=== PATIENT | male | born 1980 ===

== ENCOUNTER 2016-08-17 04:45 | Emergency (ER) | payer MEDICAID ==
[2016-08-17 04:55] VITALS: TEMP 98.5
[2016-08-17 05:28] LABS: BASO # 0.1 K/uL (0.0-0.2); BASO % 0.7 % (0.0-2.0); EOS # 0.2 K/uL (0.0-0.7); EOS % 1.7 % (0.0-4.0); HEMATOCRIT 38.2 % (35.0-51.0); LYMPH # 3.4 K/uL (1.0-4.3); LYMPH % 28.2 % (20.0-40.0); MEAN CELL VOLUME 84.2 fl (80.0-94.0); MEAN CORPUSCULAR HEMOGLOBIN 26.5 pg (27.0-31.0); MEAN CORPUSCULAR HGB CONC 31.4 g/dL (33.0-37.0); MEAN PLATELET VOLUME 9.3 fl (7.2-11.7); MONO # 0.9 K/uL (0.0-0.8); MONO % 7.1 % (0.0-10.0); NEUT # 7.5 K/uL (1.8-7.0); NEUT % 62.3 % (50.0-75.0); NRBC % 0.1 % (0.0-0.0)
[2016-08-17 05:36] LABS: ALB/GLOB RATIO 1.3 (1.0-2.1); ALCOHOL SERUM < 10 mg/dl (0-10); ALKALINE PHOSPHATASE 79 U/L (38-126); ALT/SGPT 36 U/L (21-72); AST/SGOT 28 U/L (17-59); BILIRUBIN,TOTAL 0.2 mg/dl (0.2-1.3); BLOOD UREA NITROGEN 20 mg/dl (9-20); CARBON DIOXIDE 28 mmol/L (22-30); CHLORIDE 102 mmol/L (98-107); GFR AFRICAN-AMERICAN > 60; GLUCOSE,RANDOM 111 mg/dL (75-110); POTASSIUM 3.6 MMOL/L (3.6-5.0); SODIUM 140 mmol/l (132-148); TOTAL PROTEIN 7.1 G/DL (6.3-8.2)
--- NOTE | 2016-08-17 05:44 | ED PDOC ---
HPI: Psych/Substance Abuse Time Seen by Provider: 08/17/16 05:07 Chief Complaint (Nursing): Psychiatric Evaluation Chief Complaint (Provider): Psychiatric Evaluation History Per: Patient History/Exam Limitations: no limitations Current Symptoms Are (Timing): Still Present Additional Complaint(s): 35 y/o male with a past medical history of depression and schizophrenia presents to the emergency department with suicidal ideation. Admits to substance abuse of K2, cannabis, and alcohol. Denies specific plan, auditory or visual hallucinations. Past Medical History Reviewed: Historical Data, Nursing Documentation, Vital Signs Vital Signs: Last Vital Signs Temp 98.5 F 08/17/16 04:54 Pulse 92 H 08/17/16 04:54 Resp 20 08/17/16 04:54 BP 155/78 H 08/17/16 04:54 Pulse Ox 95 08/17/16 04:54 - Medical History PMH: Bipolar Disorder, Depression, Schizophrenia - Surgical History Surgical History: No Surg Hx - Family History Family History: States: Unknown Family Hx - Social History Current smoker - smoking cessation education provided: Yes Alcohol: Social Drugs: Other - Allergies Allergies/Adverse Reactions: Allergies Allergy/AdvReac Type Severity Reaction Status Date / Time No Known Allergies Allergy Verified 08/17/16 04:55 Review of Systems ROS Statement: Except As Marked, All Systems Reviewed And Found Negative Psych: Positive for: Depression, Suicidal ideation. Negative for: Other ( Auditory/visual hallucinations) Physical Exam - Reviewed Nursing Documentation Reviewed: Yes Vital Signs Reviewed: Yes - Physical Exam Appears: Positive for: Non-toxic, No Acute Distress Head Exam: Positive for: ATRAUMATIC, NORMOCEPHALIC Skin: Positive for: Normal Color, Warm, Dry Neck: Positive for: Normal, Supple Cardiovascular/Chest: Positive for: Regular Rate, Rhythm. Negative for: Murmur Respiratory: Positive for: Normal Breath Sounds. Negative for: Accessory Muscle Use, Respiratory Distress Gastrointestinal/Abdominal: Positive for: Normal Exam, Soft. Negative for: Tenderness Extremity: Positive for: Normal ROM. Negative for: Pedal Edema Neurologic/Psych: Positive for: Alert, Oriented - Laboratory Results Result Diagrams: 08/17/16 05:25 08/17/16 05:25 - ECG O2 Sat by Pulse Oximetry: 95 (RA) Pulse Ox Interpretation: Normal Medical Decision Making Medical Decision Making: Time: 05:07 Initial impression: 35 y/o male with suicidal ideation in setting of known depression and schizophrenia Initial plan: --Electrocardiogram stat --Drug Screen, urine Stat --Crisis Evaluation As Ordered --EKG-ED ([id number]) --AccCheck --Revaluation Time: 07:00 --Patient is signed out to Dr. Kamran Dominguez Attestation: Documented by Sanjana Coronado, acting as a scribe for Jenaro Templeton MD. Provider Scribe Attestation: All medical record entries made by the Scribe were at my direction and personally dictated by me. I have reviewed the chart and agree that the record accurately reflects my personal performance of the history, physical exam, medical decision making, and the department course for this patient. I have also personally directed, reviewed, and agree with the discharge instructions and disposition. Disposition - Clinical Impression Clinical Impression: Substance use disorder - Disposition Referrals: [facility] [Outside] Disposition: Transfer of Care (to Dr. Andrew) Disposition Time: 07:00 Condition: STABLE Instructions: Polysubstance Abuse (ED) Print Language: UPPER SORBIAN
--- NOTE | 2016-08-17 06:13 | ED PDOC ---
- Laboratory Results Result Diagrams: 08/17/16 05:25 08/17/16 05:25 - ECG O2 Sat by Pulse Oximetry: 95 (RA) Pulse Ox Interpretation: Normal Medical Decision Making Medical Decision Making: Time: 07:00 --Transfer of care from Dr. Templeton pending sobriety and crisis Pt cleared by Crisis for discharge. Scribe Attestation: Documented by Ketty Calloway acting as a scribe for Shalini Andrew MD MD Scribe Attestation: All medical record entries made by the Scribe were at my direction and personally dictated by me. I have reviewed the chart and agree that the record accurately reflects my personal performance of the history, physical exam, medical decision making, and the department course for this patient. I have also personally directed, reviewed, and agree with the discharge instructions and disposition. Disposition - Clinical Impression Clinical Impression: Substance use disorder - POA Present On Arrival: None - Disposition Referrals: [facility] [Outside] Disposition: Routine/Home Disposition Time: 08:36 Condition: STABLE Instructions: Polysubstance Abuse (ED) Print Language: ICELANDIC
[2016-08-17 08:55] VITALS: BP 121/56; PULSE 63; RESP 18
[2016-08-17 21:27] VITALS: O2SAT 95
--- NOTE | 2016-08-20 10:14 | CARD ---
APPROVED REPORT EKG Measurement Heart [id number] <Conclusion> Normal sinus rhythm Normal ECG
== END 2016-08-17 08:58 | disposition home or self-care (01) ==
LOC: H.ER 04:45
DX: F19.10 Other psychoactive substance abuse, uncomplicated (principal); Z86.59 Personal history of other mental and behavioral disorders